=== PATIENT | female | born 1990 | race Caucasian/White ===

== ENCOUNTER → 2017-12-30 14:38 | Outpatient (CLI) | payer OTHER, SELFPAY ==
[2018-01-06 09:18] LABS: HPV Reflexed? NOT INDICATED
== END ==
PROVIDERS: Family Provider Family Medicine; PCP Family Medicine; Visit Provider Obstetrics & Gynecology
DX: Z12.4 Encounter for screening for malignant neoplasm of cervix (principal)
CPT/HCPCS: 88175; G0145

== ENCOUNTER → 2018-06-08 08:53 | Outpatient (CLI) | payer OTHER, SELFPAY ==
[2018-06-08 12:40] LABS: Insulin 9.9 mU/L (2.6-37.6); Progesterone Level 0.35 ng/mL (See Comment); T3 Total - Triiodothyronine 0.83 ng/mL (0.6-1.81)
[2018-06-08 13:03] LABS: Erythrocyte Sedimentation Rate 3 mm/hr (0-20)
[2018-06-08 13:38] LABS: Anion Gap 10 (5-15); BUN 10 mg/dL (7-18); CRP < 2.90 mg/L (0.0-3.0); Calcium,Total 8.9 mg/dL (8.5-10.1); Chloride 102 mmol/L (98-107); Creatinine, Serum 0.66 mg/dL (0.55-1.02); EST Glomerular Filtration Rate 111 mL/min (>60); Est Glom Filt Rate - Afr Amer 134 mL/min (>60); Estradiol 344.5 pg/mL; Follicle Stimulating Hormone 3.1 mIU/mL; Glucose 94 mg/dL (74-106); Luteinizing Hormone 8.3 mIU/mL; Potassium 3.7 mmol/L (3.5-5.1); Prolactin 6.9 ng/mL; Sodium Level 140 mmol/L (136-145); T4 Free Direct 1.12 ng/dL (0.76-1.46); Thyroid Stim Hormone (TSH) 1.64 uIU/mL (0.358-3.74)
[2018-06-12 10:00] LABS: 17-Hydroxyprogesterone 131 ng/dL (.)
== END ==
PROVIDERS: PCP Family Medicine; Visit Provider Family Medicine
DX: N92.6 Irregular menstruation, unspecified (principal); R53.83 Other fatigue; N94.6 Dysmenorrhea, unspecified; M06.9 Rheumatoid arthritis, unspecified
CPT/HCPCS: 36415; 80048; 82533; 82627; 82670; 83001; 83002; 83498; 83525; 84144; 84146; 84270; 84403; 84439; 84443; 84480; 85652; 86140; 82626

== ENCOUNTER → 2019-02-25 12:58 | Outpatient (CLI) | payer OTHER, SELFPAY ==
--- NOTE | 2019-02-25 13:04 | RAD_ITS ---
STUDY: HYSTEROSALPINGOGRAM. REASON FOR EXAM: Female, 28 years old. Infertility. FLUOROSCOPY TIME (if supplied): (0:18) minutes/seconds. 3 images were submitted. TECHNIQUE: A hysterosalpingogram was performed by the poultry trimmer. Contrast was injected. Imaging was obtained. COMPARISON: None. FINDINGS: The uterus is unremarkable. Both fallopian tubes are patent with free spill. RAD/Salpingogram IMPRESSION: Unremarkable hysterosalpingogram. Electronically Signed: Luis Davies, at 14:07 EDT , Service support ,
== END ==
PROVIDERS: Family Provider Internal Medicine; PCP Internal Medicine; Referring Provider Obstetrics & Gynecology; Visit Provider Obstetrics & Gynecology
DX: Z31.41 Encounter for fertility testing (principal)
CPT/HCPCS: 58340; 74740; Q9967